=== PATIENT | male | born 1985 | race Caucasian/White ===

== ENCOUNTER 2017-04-26 16:20 | Emergency (ER) | payer OTHER ==
[~2017-04-26 16:20] MED LIST: AMB10 PO; CLEOCIN300 MG PO; CYMBALTA60 PO; ENDOCET1 TAB PO; FLEX PO; IBU800 PO; KEPPRA750 MG PO; LEXAPRO10 PO; LOP50 PO; MELATONIN5 M1 PO; METHOC500B PO; METHOC750B PO; MIACALCIN NAS; MOBIC7.5 PO; NEUR300 PO; NICODERM C14 MG/24 H EX; NORCO1 TA1 PO; NORCO1 TAB PO; OXYCON20 PO; PCET PO; TRILEP300 PO; ULTRAM50 PO; V5 PO
== END 2017-04-26 17:10 | disposition home or self-care (01) ==
LOC: ER 16:20
DX: R10.31 Right lower quadrant pain (principal); R56.9 Unspecified convulsions; I47.1 Supraventricular tachycardia; Z87.442 Personal history of urinary calculi; Z98.1 Arthrodesis status; Z88.1 Allergy status to other antibiotic agents; Z88.5 Allergy status to narcotic agent; Z88.8 Allergy status to other drugs, medicaments and biological substances; Z79.899 Other long term (current) drug therapy
CPT/HCPCS: 93926; 99284

== ENCOUNTER 2017-05-01 16:09 | Emergency (ER) | payer OTHER ==
[2017-05-01 16:57] LABS: BASOPHILS 0.2 %; BASOPHILS ABSOLUTE 0.02 10/3/uL (0.0-0.16); EOSINOPHILS 0.2 %; EOSINOPHILS ABSOLUTE 0.02 10/3/uL (0.0-0.53); ER CBC TAT 0 Hrs 07 Mins; HEMATOCRIT 42.5 % (40.0-51.0); IMMATURE GRANULOCYTES 0.4 %; IMMATURE GRANULOCYTES ABSOLUTE 0.03 10/3/uL (0.0-0.11); LYMPHOCYTES 31.1 %; LYMPHOCYTES ABSOLUTE 2.59 10/3/uL (0.67-4.30); MEAN CORPUS HGB CONC 35.3 g/dL (32.0-36.0); MEAN CORPUSCULAR HEMOGLOB 31.5 pg (26.0-34.0); MEAN CORPUSCULAR VOLUME 89.3 fL (80-100); MEAN PLATELET VOLUME 9.7 fL (9.2-13.0); MONOCYTES 6.4 %; MONOCYTES ABSOLUTE 0.53 10/3/uL (0.21-1.20); NEUTROPHILS 61.7 %; NEUTROPHILS ABSOLUTE 5.15 10/3/uL (2.02-8.40); PLATELET COUNT 259 10/3/uL (150-400); RBC DISTRIBUTION WIDTH 12.6 % (12.0-16.0); RED CELL COUNT 4.76 10/6/uL (4.7-6.1); WHITE BLOOD CELLS 8.3 10/3/uL (4.5-10.5)
[2017-05-01 17:00] LABS: MANUAL DIFF NO %
[2017-05-01 17:14] LABS: BUN (BLOOD UREA NITROGEN) 16 MG/DL (6-23); CALCIUM, SERUM 9.3 MG/DL (8.5-10.4); CHEST PAIN PROFILE TAT 0 Hrs 24 Mins; CHLORIDE, SERUM 105 MMOL/L (96-112); CO2 (CARBON DIOXIDE) 30 MMOL/L (24-34); CREATININE 1.22 MG/DL (0.70-1.30); GFR AFRICAN AMERICAN 91 ML/MIN (>=60); GFR NON AFRICAN AMERICAN 79 ML/MIN (>=60); GLUCOSE, SERUM 101 MG/DL (60-99); POTASSIUM, SERUM 3.6 MMOL/L (3.5-5.3); SODIUM, SERUM 141 MMOL/L (135-148); TROPONIN I <0.02 NG/ML (<0.05)
[2017-05-01 17:52] LABS: INTERNATIONAL NORMAL RATI 1.2 UNITS (-); PARTIAL THROMBO TIME 29.5 SEC (22.5-37.2); PROTIME (NOT ORD) 15.2 SEC (12.0-14.5)
[2017-05-01 17:54] LABS: D-DIMER QUANTITATIVE 0.31 ug/mLFEU (< 0.50)
== END 2017-05-01 18:08 | disposition home or self-care (01) ==
LOC: ER 16:09
PROVIDERS: Emergency Medicine
DX: I47.1 Supraventricular tachycardia (principal); Z88.5 Allergy status to narcotic agent; Z88.1 Allergy status to other antibiotic agents; Z79.899 Other long term (current) drug therapy
CPT/HCPCS: 71010; 80048; 83735; 83880; 84484; 85025; 85379; 85610; 85730; 93005; 99291